=== PATIENT | male | born 1970 | race Caucasian/White ===

== ENCOUNTER 2019-10-16 15:47 | Day surgery (SDC) | payer OTHER ==
[~2019-10-16] VITALS: Ht 190.5 cm; Wt 104.8 kg
--- NOTE | ~2019-10-16 | OR ---
[facility] [address] [place], [place] [address] Draft DATE OF OPERATION: 10/16/2019 SURGEON: Kym Alejandro MD PREOPERATIVE DIAGNOSES: 1. Gastroesophageal reflux and reactive airways. 2. Colon screening (family history of colon cancer in mother). POSTOPERATIVE DIAGNOSES: 1. Hiatal hernia with mild distal esophagitis and antral gastritis. 2. Polyps x3 (small) of colon. PROCEDURES PERFORMED: 1. Esophagogastroduodenoscopy with biopsy. 2. Total colonoscopy to cecum with cold morcellation polypectomy x3 and biopsy of ileum x1. ANESTHESIA: Intravenous sedation, fentanyl 200 mcg, Versed 10 mg total. INDICATIONS: This 49-year-old white man is a patient of Dr. Jael Earl. He is referred for consideration of upper endoscopy on the basis of reflux symptoms. He does take Prilosec on a daily basis. He does not have dysphagia, but does have reactive airways likely related to his reflux. He is admitted to undergo upper endoscopy on that basis. Additionally, he has never undergone colonoscopy. He is 49 years of age. He does have family history of colon cancer in his mother, who is alive and well following treatment. He is admitted to undergo both upper and lower endoscopic evaluation. He understands the risks of bleeding, infection, perforation. FINDINGS: Upper endoscopy showed mild distal esophagitis and a poor flap valve consistent with hiatal hernia. There was mild antral gastritis. CLOtest was negative 30 minutes post procedure. On colonoscopy, the prep was quite excellent. Complete colonoscopy was undertaken of the cecum. There were 2 small polyps, one in the cecum, one in the proximal ascending colon, both considered for pathologic labeling. They were excised. There was a diminutive polyp of the sigmoid which was excised, and the ileocecal valve also PATIENT NAME: EDILSON DASH OPERATIVE REPORT DATE OF : 68 REPORT #: [id number] PHYSICIAN: KYM ALEJANDRO MD PCP: JAEL EARL MD REPORT IS CONFIDENTIAL AND NOT TO BE RELEASED WITHOUT AUTHORIZATION [facility] [address] [place], [place] [address] Draft appeared prominent though that was severely pathologic and biopsies were obtained of that to assess for adenomatous change. DESCRIPTION OF PROCEDURE: The patient was brought to the endoscopy suite, given topical Hurricaine spray, hypopharyngeal anesthesia, and placed in lateral decubitus position. A bite block was placed. Intravenous sedation was then administered with intravenous medication. Full cardiopulmonary monitoring. An Olympus video upper endoscope was passed in the hypopharynx. Vocal cords were somewhat obscured, but the surrounding soft tissue was normal. Scope was advanced to the esophagus without problem. Distal esophagus had mild inflammation, but no Paz epithelium, stricture, or neoplasm. The scope was advanced to the stomach, which was insufflated with air. Rugal folds were normal as was the antral motility. There was mild inflammatory change of the stomach with no erosions or ulcers. Pylorus was normal. Scope was threaded into the duodenum, which was normal. Biopsies were taken of the duodenum. Subsequently, scope withdrawn. Biopsies were taken of the antrum for both JANIYA and pathologic testing. Retroflexed view was undertaken showing a poor flap valve consistent with small hiatal hernia. Scope was straightened, withdrawn. A biopsy was then taken of the distal esophagus, which had mild chronic inflammatory changes as well as mid-esophagus, which was essentially normal. Scope was then withdrawn and no other findings were noted. The patient was then prepared for colonoscopy. Digital rectal examination was found to be normal. An Olympus video colonoscope was passed in the rectum and manipulated throughout the colon. Notably he had a good prep. The scope was ultimately advanced to the proximal ascending colon, where a small sessile polyp was noted, this was excised and subsequently labeled for as a cecal polyp essentially. With various maneuvers, ultimately the cecum was intubated. There was a small, probably adenomatous polyp there that was excised with cold morcellation technique without problem. The scope was withdrawn from there and examination throughout showed no sign of other abnormality until the ileocecal valve, where it was prominent and although not particularly mistaken for an adenoma, may have adenomatous changes on its surface and therefore it was biopsied. The scope was further withdrawn and remaining colon was normal until the sigmoid where a small diminutive polyp was noted, this was excised with a single grasp of the biopsy forceps. There were internal hemorrhoids to a degree, but no sign of bleeding or thrombosis. The scope was removed and the patient was taken to recovery room in good condition. CONCLUDING DIAGNOSES: 1. Hiatal hernia with distal esophagitis, mild antral gastritis. 2. Very small polyps x3 excised. PATIENT NAME: EDILSON DASH OPERATIVE REPORT DATE OF : 68 REPORT #: [id number] PHYSICIAN: KYM ALEJANDRO MD PCP: JAEL EARL MD REPORT IS CONFIDENTIAL AND NOT TO BE RELEASED WITHOUT AUTHORIZATION [address] [address] Draft PLAN: Repeat colonoscopy in 5 years. Continue with omeprazole for now. Return to clinic to review findings and clinical symptoms 4 weeks or so from now. MD ELIZABETH Lyle/MOSHE /[id number] cc: Jael Earl MD Copies: JAEL EARL MD ~ PATIENT NAME: EDILSON DASH BRYANGABRIELLA OPERATIVE REPORT DATE OF : [birth year] REPORT #: [id number] PHYSICIAN: KYM ALEJANDRO MD PCP: JAEL EARL MD REPORT IS CONFIDENTIAL AND NOT TO BE RELEASED WITHOUT AUTHORIZATION
[2019-10-16] MEDS ORDERED: SINGULAIR10 MG PO (16:14)
[2019-10-16] MEDS ORDERED: OMEPRAZOLE20 MG PO (16:14)
--- NOTE | 2019-10-16 18:13 | NUR ---
10/16/19 181 Radha Muhammad 180-PATIENT ARRIVED TO PACU ON 2L NC AWAKE DENIES PAIN OR NAUSEA. ENCOURAGED TO PASS GAS. IVF INFUSING. LAYING LEFT LATERAL.
--- NOTE | 2019-10-20 15:52 | PATH ---
[facility] [address] [place], [place] [address] Signed SPECIMEN(S): A DUODENUM SPECIMEN(S): B ANTRUM/PYLORUS SPECIMEN(S): C LOWER ESOPHAGUS SPECIMEN(S): D MIDDLE ESOPHAGUS SPECIMEN(S): E CECAL POLYP SPECIMEN(S): F ILEOCECAL VALVE SPECIMEN(S): G SIGMOID POLYP SPECIMEN SOURCE: A. DUODENUM B. ANTRUM/PYLORUS C. LOWER ESOPHAGUS D. MIDDLE ESOPHAGUS E. CECAL POLYP F. ILEOCECAL VALVE G. SIGMOID POLYP CLINICAL HISTORY: " Hx GERD? Screening". Dx: Hiatal, chronic esophagitis, mild gastritis. R/O polyps. MICROSCOPIC DESCRIPTION: Histologic sections of all submitted blocks are examined by light microscopy. These findings, together with the gross examination, support the pathologic diagnosis. FINAL PATHOLOGIC DIAGNOSIS: A. Duodenum, biopsy: - Changes consistent with peptic duodenitis. - Negative for Helicobacter organisms on HE stain. - Negative for dysplasia or malignancy. B. Stomach, antrum/pylorus, biopsy: - Antral and oxyntic mucosa with no histopathologic abnormality. - Negative for Helicobacter organisms on HE stain. - Negative for dysplasia or malignancy. C. Esophagus, lower, biopsy: - Squamous mucosa with focal changes suggestive of mild reflux esophagitis. - Negative for intestinal metaplasia, dysplasia, or malignancy. D. Esophagus, mid, biopsy: - Squamous mucosa with no histopathologic abnormality. - Negative for intestinal metaplasia, dysplasia, or malignancy. E. Colon, cecum, polyp, polypectomy: PATIENT NAME: EDILSON DASH PATHOLOGY DATE OF : [birth year] REPORT #: [id number] PHYSICIAN: HAI POLANCO PCP: JAEL MEDELLIN MD REPORT IS CONFIDENTIAL AND NOT TO BE RELEASED WITHOUT AUTHORIZATION [facility] [address] [place], [place] [address] Signed - Tubular adenoma (one fragment). - Colonic mucosa with no histopathologic abnormality (two fragments). - Negative for high-grade dysplasia or malignancy. F. Ileocecal valve, biopsy: - Colonic mucosa with no histopathologic abnormality. - Negative for dysplasia or malignancy. G. Colon, sigmoid, polyp, polypectomy: - Colonic mucosa with no histopathologic abnormality. - Negative for dysplasia or malignancy. COMMENT: Multiple additional levels of specimen G were examined. NAL:emb:C2NR GROSS DESCRIPTION: Seven specimens are received in seven containers, labeled "DB." A. The specimen, labeled "DB, #1," is received in formalin and consists of two rodriguez soft tissue fragment(s) that measure 0.3 and 0.4 cm in greatest dimension. The specimen is entirely submitted in cassette (A1). B. The specimen, labeled "DB, #2," is received in formalin and consists of three rodriguez soft tissue fragment(s) that measure 0.2-0.4 cm in greatest dimension. The specimen is entirely submitted in cassette (B1). C. The specimen, labeled "DB, #3," is received in formalin and consists of four white-rodriguez soft tissue fragment(s) that measure 0.2-0.7 cm in greatest dimension. The specimen is entirely submitted in cassette (C1). D. The specimen, labeled "DB, #4," is received in formalin and consists of one white-rodriguez soft tissue fragment(s) that measures 0.3 cm in greatest dimension. The specimen is entirely submitted in cassette (D1). E. The specimen, labeled "DB, #5," is received in formalin and consists of three rodriguez soft tissue fragment(s) that measure zero point to 0.3 cm in greatest dimension. The specimen is entirely submitted in cassette (E1). F. The specimen, labeled "DB, #6," is received in formalin and consists of one rodriguez soft tissue fragment(s) that measures 0.4 cm in greatest dimension. The specimen is entirely submitted in cassette (F1). PATIENT NAME: EDILSON DASH PATHOLOGY DATE OF : [birth year] REPORT #: [id number] PHYSICIAN: HAI POLANCO PCP: JAEL MEDELLIN MD REPORT IS CONFIDENTIAL AND NOT TO BE RELEASED WITHOUT AUTHORIZATION [facility] [address] [place], [place] [address] Signed G. The specimen, labeled "DB, #7," is received in formalin and consists of one rodriguez soft tissue fragment(s) that measures 0.3 cm in greatest dimension. The specimen is entirely submitted in cassette (G1). FB (under the direct supervision of a pathologist) The Gross Description was prepared using a voice recognition system. The report was reviewed for accuracy; however, sound-alike word errors, addition and/or deletions may occur. If there is any question about this report, please contact Client Services. PERFORMING LABORATORY: The technical component was performed by [employer], [address] [place] [address] (Gut Dropper: Beatriz Robles MD; CLIA# [id number]). [facility] by [facility], [address] [place] [address] (Gut Dropper: Kofi Fang MD; CLIA# [id number]). Diagnostician: Cris Mcgee MD Pathologist Electronically Signed 10/20/2019 Copies: ~ PATIENT NAME: EDILSON DASH BRYANGABRIELLA PATHOLOGY DATE OF : 68 REPORT #: [id number] PHYSICIAN: HAI POLANCO PCP: JAEL MEDELLIN MD REPORT IS CONFIDENTIAL AND NOT TO BE RELEASED WITHOUT AUTHORIZATION
== END 2019-10-16 18:45 | disposition home or self-care (01) ==
LOC: OPS 15:47
PROVIDERS: Surgery
PROC: 0DB38ZX Excision of Lower Esophagus, Via Natural or Artificial Opening Endoscopic, Diagnostic (ICD-10-PCS; 2019-10-16)
PROC: 0DB28ZX Excision of Middle Esophagus, Via Natural or Artificial Opening Endoscopic, Diagnostic (ICD-10-PCS; 2019-10-16)
PROC: 0DBH8ZZ Excision of Cecum, Via Natural or Artificial Opening Endoscopic (ICD-10-PCS; 2019-10-16)
PROC: 0DBN8ZZ Excision of Sigmoid Colon, Via Natural or Artificial Opening Endoscopic (ICD-10-PCS; 2019-10-16)
PROC: 0DB98ZX Excision of Duodenum, Via Natural or Artificial Opening Endoscopic, Diagnostic (ICD-10-PCS; principal; 2019-10-16 14:00)
PROC: 0DB78ZX Excision of Stomach, Pylorus, Via Natural or Artificial Opening Endoscopic, Diagnostic (ICD-10-PCS; 2019-10-16 14:00)
DX: Z12.11 Encounter for screening for malignant neoplasm of colon (principal); D12.0 Benign neoplasm of cecum; K63.5 Polyp of colon; K21.0 Gastro-esophageal reflux disease with esophagitis; K29.70 Gastritis, unspecified, without bleeding; K44.9 Diaphragmatic hernia without obstruction or gangrene; J45.909 Unspecified asthma, uncomplicated; Z79.899 Other long term (current) drug therapy; Z80.0 Family history of malignant neoplasm of digestive organs; Z98.890 Other specified postprocedural states
CPT/HCPCS: 99153; G0500; J2250; J3010; J7121

== ENCOUNTER 2022-09-02 12:50 | Emergency (ER) | payer OTHER ==
[~2022-09-02] VITALS: Ht 190.5 cm; Wt 104.0 kg
[~2022-09-02 12:50] MED LIST: OMEPRAZOLE20 MG PO; SINGULAIR10 MG PO
[2022-09-02] MEDS ORDERED: CIPRO500 MG PO (14:49)
== END 2022-09-02 15:32 | disposition home or self-care (01) ==
LOC: ED 12:50
DX: S91.332A Puncture wound without foreign body, left foot, initial encounter (principal); K21.9 Gastro-esophageal reflux disease without esophagitis; Z23 Encounter for immunization; Z79.899 Other long term (current) drug therapy; W45.0XXA Nail entering through skin, initial encounter
CPT/HCPCS: 73630; 90471; 90715; 99283-25

== ENCOUNTER 2023-08-21 11:51 | Day surgery (SDC) | payer OTHER ==
[~2023-08-21] VITALS: Ht 190.5 cm; Wt 100.9 kg
[~2023-08-21 11:51] MED LIST changes: +CIPRO500 MG PO
[2023-08-21 12:11] VITALS: BP 147/91
--- NOTE | 2023-08-21 13:14 | NUR ---
08/21/23 1314 Nancy,Briseida 1303 PT ARRIVED TO PACU ON 2L VIA NC, PT WAKES EASILY AND DENIES CONCERNS. PT RESTING WITH EYES CLOSED.
[2023-08-21 13:36] VITALS: BP 125/78
--- NOTE | 2023-08-23 08:41 | OR ---
[facility] [address] [place], [place] [address] Signed DATE OF OPERATION: 08/21/2023 SURGEON: Kym Alejandro MD PREOPERATIVE DIAGNOSIS: Long-standing gastroesophageal reflux. POSTOPERATIVE DIAGNOSIS: Mild distal esophagitis and hiatal hernia. PROCEDURE: Esophagogastroduodenoscopy with biopsy. ANESTHESIA: Intravenous sedation; fentanyl 100 mcg and Versed 5 mg. INDICATION: This 52-year-old white man is a patient of JERMAINE Vasquez. He has had long-standing gastroesophageal reflux, who last underwent upper endoscopy in 2019. He was taking Prilosec 40 mg a day, which is very helpful to control his reflux symptoms. He does have occasional spontaneous regurgitation by the sounds of it. He has no dysphagia currently and no hematemesis. He has no family history of esophageal cancer. He is admitted at this time to undergo upper endoscopy to better characterize this situation, anticipating possible operative intervention. The risk of bleeding, infection, and perforation related to upper endoscopy was reviewed. He understands and wished to proceed. FINDINGS: Indeed he had a hiatal hernia of moderate size. There is mild distal esophagitis, but not much and there is no evidence of Paz's epithelium, stricture or neoplasm. Stomach and duodenum were essentially normal otherwise. CLOtest was negative 15 minutes post procedure. DESCRIPTION OF PROCEDURE: The patient was brought to the endoscopy suite and given topical lidocaine hypopharyngeal anesthesia and placed in the lateral decubitus position. He was given intravenous sedation to the point of slurred speech and nystagmus with full cardiopulmonary monitoring. A bite block was placed. An Olympus video upper endoscope was passed in the hypopharynx. The vocal cords Electronically Signed By: KYM ALEJANDRO MD 08/23/23 0841 PATIENT NAME: EDILSON DASH OPERATIVE REPORT DATE OF : [birth year] REPORT #: [id number] PHYSICIAN: KYM ALEJANDRO MD PCP: KALLIE GREENWOOD PA-C REPORT IS CONFIDENTIAL AND NOT TO BE RELEASED WITHOUT AUTHORIZATION [facility] [address] [place], [place] [address] Signed appeared normal. Scope was advanced into the esophagus, which had a somewhat granular appearance generally speaking. Distal portion showed no sign of stricture, neoplasm or Paz's epithelium. The scope was passed into the stomach which was insufflated with air. Rugal folds appeared normal. The antrum was normal as was the pylorus. The scope was passed through the pylorus and into the duodenum, which appeared normal. Biopsies were taken there to assess for celiac disease. The scope was withdrawn. A biopsy was then taken of the antrum for both JANIYA and pathologic testing. Retroflexed view was undertaken with various manipulations, good visualization of the GE junction was accomplished. This did show hiatal hernia. Withdrawal of the scope into the distended esophagus was able to be done a testimony to the laxity of the flap valve. The scope was straightened and withdrawn and biopsies then taken of the distal esophageal mucosa and subsequently the mid esophagus. The scope was then removed and the patient was taken to the recovery room in good condition. CONCLUDING DIAGNOSIS: Hiatal hernia with clinical gastroesophageal reflux symptoms. No evidence of Paz's epithelium, stricture, neoplasm, or contraindication to operation. PLAN: He will see us back in the office in a few weeks to review his pathology report and review of surgical options as appropriate. The patient has been considered for video esophagram as well it is noted. MD ELIZABETH Lyle/DARRELLL /[id number] cc: Kallie Greenwood PA-C Copies: KALLIE GREENWOOD PA-C ~ Electronically Signed By: KYM ALEJANDRO MD 08/23/23 0841 PATIENT NAME: EDILSON DASH OPERATIVE REPORT DATE OF : [birth year] REPORT #: [id number] PHYSICIAN: KYM ALEJANDRO MD PCP: KALLIE GREENWOOD PA-C REPORT IS CONFIDENTIAL AND NOT TO BE RELEASED WITHOUT AUTHORIZATION
--- NOTE | 2023-08-24 13:17 | PATH ---
[facility] [address] [place], [place] [address] Signed SPECIMEN(S): A DUODENAL BIOPSY SPECIMEN(S): B ANTRUM BIOPSY SPECIMEN(S): C GASTRIC STOMACH POLYP SPECIMEN(S): D DISTAL ESOPHAGEAL BIOPSY SPECIMEN(S): E MID ESOPHAGEAL BIOPSY SPECIMEN SOURCE: A. DUODENAL BIOPSY B. ANTRUM BIOPSY C. GASTRIC STOMACH POLYP D. DISTAL ESOPHAGEAL BIOPSY E. MID ESOPHAGEAL BIOPSY CLINICAL HISTORY: Pre: GERD. Post: Hiatal hernia, mild distal esophagitis. FINAL PATHOLOGIC DIAGNOSIS: A. Duodenal biopsy: - Benign duodenal mucosa, negative for specific diagnostic abnormality. B. Antrum biopsy: - Benign gastric-type mucosa with focal slight chronic inflammation. - Negative for evidence of Helicobacter organisms on routine HE stained sections. C. Gastric polyp: - Benign fundic gland polyp (one fragment). D. Distal esophageal biopsy: - Benign esophageal mucosa negative for significantly increased epithelial eosinophils. - Negative for glandular mucosa. E. Mid esophageal biopsy: - Benign esophageal mucosa, negative for increased epithelial eosinophils. JVR:[facility] MICROSCOPIC EXAMINATION: Histologic sections of all submitted blocks are examined by light microscopy. These findings, together with the gross examination, support the pathologic diagnosis. GROSS DESCRIPTION: A. The specimen, labeled and designated "Raz Dash, duodenum biopsy," is received in formalin and consists of 2 rodriguez soft tissue fragments measuring 0.5 PATIENT NAME: MARKHANNYEDILSON SU PATHOLOGY DATE OF : 68 REPORT #: [id number] PHYSICIAN: CORINNETherative COLLIN PCP: SHIRA ESCOBAR PA-C REPORT IS CONFIDENTIAL AND NOT TO BE RELEASED WITHOUT AUTHORIZATION [facility] [address] [place], [place] [address] Signed x 0.5 cm in greatest dimension, all specimens are submitted entirely in (A1). B. The specimen, labeled and designated "Brehaut, D, antrum biopsy," is received in formalin and consists of 1 rodriguez soft tissue fragment measuring 0.4 x 0.6 cm and is submitted entirely in (B1). C. The specimen, labeled and designated "Brehaut, D, gastric stomach polyp," is received in formalin and consists of 1 rodriguez soft tissue fragment measuring 0.3 x 0.4 cm and is submitted entirely in (C1). D. The specimen, labeled and designated "Brehaut, D, distal esophageal biopsy," is received in formalin and consists of 5 white soft tissue fragments measuring 0.3 x 0.5 cm in greatest dimension, all specimens are submitted entirely in (D1). MMA (under the direct supervision of a pathologist) E. The specimen, labeled and designated "Brehaut, D, mid esophageal biopsy," is received in formalin and consists of 2 white soft tissue fragments measuring 0.4 x 0.5 cm in greatest dimension, all specimens are submitted entirely in (E1). MMA (under the direct supervision of a pathologist) The Gross Description was prepared using a voice recognition system. The report was reviewed for accuracy; however, sound-alike word errors, addition and/or deletions may occur. If there is any question about this report, please contact Client Services. PERFORMING LABORATORY: Technical component was performed by [employer], [address] [place] [address] (CLIA# [id number]). Professional interpretation was performed by [employer] [facility], [address] [place] [address] [place] [address] (CLIA#: [id number]). Diagnostician: Hipolito Chu MD Pathologist Electronically Signed 08/24/2023 Copies: ~ PATIENT NAME: EDILSON DASH PATHOLOGY DATE OF : 68 REPORT #: [id number] PHYSICIAN: HAI POLANCO PCP: SHIRA ESCOBAR PA-C REPORT IS CONFIDENTIAL AND NOT TO BE RELEASED WITHOUT AUTHORIZATION
== END 2023-08-21 13:48 | disposition home or self-care (01) ==
LOC: OPS 11:51 → DS 11:58 → OPS 12:15
PROVIDERS: ATTEND Surgery
PROC: 0DB68ZX Excision of Stomach, Via Natural or Artificial Opening Endoscopic, Diagnostic (ICD-10-PCS; principal; 2023-08-21 12:15)
DX: K21.00 Gastro-esophageal reflux disease with esophagitis, without bleeding (principal); K44.9 Diaphragmatic hernia without obstruction or gangrene
CPT/HCPCS: 99153; G0500; J2250; J3010; J7121